=== PATIENT | female | born 1960 | race Caucasian/White ===

== ENCOUNTER 2020-04-23 11:05 | Outpatient (CLI) | payer MEDICARE, SELFPAY ==
--- NOTE | 2020-04-23 11:11 | MM_ITS ---
WS: [id number] BILATERAL SCREENING DIGITAL MAMMOGRAM WITH CAD HISTORY: SCREEN COMPARISON: 2017 and 08/20/2015 Bilateral CC and MLO views submitted. Computer aided detection analyzed. Breast composition: There are scattered areas of fibroglandular density. No suspicious masses, microc alcifications or architectural distortion. Benign lymph nodes in the lateral posterior RIGHT breast. MM/[id number] IMPRESSION: BI-RADS: 2-Benign FOLLOW UP: 1 Year Follow-up
== END 2020-04-23 11:06 | disposition home or self-care (01) ==
LOC: RADSHAW 11:11
PROVIDERS: PCP Family Medicine; Visit Provider Family Medicine
DX: Z12.31 Encounter for screening mammogram for malignant neoplasm of breast (principal)
CPT/HCPCS: 77067

== ENCOUNTER 2020-10-23 21:54 | Emergency (ER) | payer MEDICARE, SELFPAY ==
[2020-10-23 21:56] VITALS: BP 131/92; PULSE 88; RESP 20; TEMP 36.8; O2SAT 97; BMI 40.6
--- NOTE | 2020-10-23 22:04 | ECG_ITS ---
[facility] Test Date: 2020-10-23 Pat Name: Liana Mccord Department: Room: Gender: Female Edging Machine Feeder: : 1960 Requested By: Perry Falcon I Order Number: [id number] Reading MD: EMANUEL ARREDONDO Measurements Intervals [place] Rate: 84 P: 50 [place]: 153 QRS: 13 QRSD: 97 T: 50 QT: 390 QTc: 463 Interpretive Statements SINUS RHYTHM No previous ECG available for comparison Electronically Signed On 10-24-2020 19:59:31 MANAGER OF MAINTENANCE by EMANUEL ARREDONDO [id number]
--- NOTE | 2020-10-23 22:05 | ED_ITS ---
HPI - Chest Pain General: Chief Complaint: Chest Pain Stated Complaint: chest pain Source: patient and EMS Mode of arrival: EMS Limitations: no limitations History of Present Illness: HPI narrative: The patient is a 59-year-old female with a history of diabetes who presents to the emergency department with complaints of right-sided chest pain. She said she was looking for something this evening about 4 hours ago and got upset following which she developed a right-sided chest pain. She then called for an ambulance when the pain did not resolve. In the ambulance she received 3 24 mg of aspirin and 1 sublingual nitroglycerin. Her diastolic blood pressure dropped into the 20s after the nitroglycerin so it was not repeated. Her pain is currently much improved and says that it just feels sore MD complaint: chest pain Onset (ago): hour(s) (4) Timing of current episode: constant Prior episodes: No Onset: during exertion Pain location: right chest Pain radiation: none Severity: moderate Quality: sharp Relieving factors: nitroglycerin and rest Exacerbating factors: stress Associated symptoms: Reports nausea; Deny abdominal pain, diaphoresis, dyspnea, fever(s), leg edema, palpitations, se nse of impending doom, syncope or vomiting Treatment prior to arrival: aspirin and nitroglycerin Review of Systems General: Reports: 10 or more systems reviewed and unremarkable except in HPI and below Const: Denies: fever(s) or diaphoresis Eyes: Denies: change in vision or blurry vision ENMT: Denies: throat pain, enlarged tonsils, odynophagia, hoarseness, mouth pain or swelling of lips/tongue Card: Denies: palpitations or syncope Resp: Denies: dyspnea GI: Reports: nausea; Denies: abdominal pain or vomiting : Denies: flank pain, difficulty voiding, dysuria, urinary frequency, urinary urgency or urinary hesitancy Musc: Denies: neck pain, back pain or extremity swelling Skin/Breast: Denies: rash, pruritus or erythema Neuro: Denies: headache(s), numbness in extremities or weakness in extremities Endo: Denies: polyuria, polydipsia or tired all the time Physical Exam Const: COMMON NORMALS: no acute distress, average body habitus, patient oriented x3, no limitations, healthy appearing, alert and well nourished Neck/C-Spine: COMMON NORMALS: no meningeal signs and no JVD Chest: COMMONS NORMALS: normal inspection of the chest CHEST: Yes tenderness (right chest wall) Resp: COMMON NORMALS: normal respiratory effort, No retractions, No use of accessory muscles, clear to auscultation bilaterally and percussion normal AUSCULTATION: clear to auscultation bilaterally PERCUSSION: percussion normal Cardio: COMMON NORMALS: no JVD, regular rate, regular rhythm, S1 normal heart sound present, S2 normal heart sound present, No gallops present (Cardio), No clicks present (Cardio), No murmurs present (Cardio), No rub (Cardio) and Peripheral pulses 2+ throughout RATE: regular rate RHYTHM: regular rhythm HEART SOUNDS: S1 normal heart sound present and S2 normal heart sound present PERIPHERAL PULSES: Peripheral pulses 2+ throughout GI: COMMON NORMALS: Normal to inspection, nondistended, normoactive bowel sounds present, Soft to palpation, non-tender, No hepatosplenomegaly present, no masses and no bruits PALPATION: Yes Soft to palpation and Yes No hepatosplenomegaly present Extremity: COMMON NORMALS: normal to inspection, full ROM, capillary refill normal, no calf tenderness and no pedal edema Neuro: COMMON NORMALS: patient oriented x3 SENSORIUM/ORIENTATION: Yes alert MENINGEAL SIGNS: Yes no meningeal signs Skin: COMMON NORMALS: no rashes or lesions noted, no wounds, turgor normal, no jaundice, no petechiae and no mottling GENERAL SKIN EXAM: no rashes or lesions noted and turgor normal Course Reevaluation(s): Reevaluation #1: Discussed her lab and imaging findings with her. Negative for acute findings. Heart score is 3 which means she is low risk for an adverse cardiovascular event in the next 6 weeks. High-sensitivity troponin normal. We will therefore discharge her home to follow-up with her primary care provider. Patient and her voiced understanding and are in agreement with the plan. Time: 23:34 Vital Signs: Vital signs: Vital Signs Temperature 98.2 F 10/23/20 21:56 Pulse Rate 93 10/23/20 23:15 Respiratory Rate 26 H 10/23/20 23:15 Blood Pressure 113/84 10/23/20 23:15 Pulse Oximetry 96 10/23/20 23:15 MDM - Chest Pain MDM Narrative: Medical decision making narrative: 59-year-old female who was brought in for chest pain. Chest pain started when she became agitated and improved with rest. Heart score is 3 which means she has a 1.7% risk of a major adverse cardiovascular event in the next 6 weeks. Negative high-sensitivity troponin, negative D-dimer. Other labs and chest x-ray negative. We will therefore discharge her home with no new orders but to follow-up with her primary care provider. Medical Records: Attestation: I reviewed the patient's medical records. Lab Data: Attestation: I reviewed the patient's lab results. Labs: Lab Results 10/23/20 10/23/20 10/23/20 Range/Units 22:00 22:00 22:00 WBC 6.6 (4.0-10.0) 10^3/ uL RBC 4.85 (4.1-5.3) 10^6/u L Hgb 13.2 (11.5-15.3) g/dL Hct 41.7 (37.0-47.0) % MCV 86.0 (81-99) fL MCH 27.2 L (28.0-34.0) pg MCHC 31.7 (30.0-36.0) g/dL RDW 14.0 (12.1-15.1) % Plt Count 314 (130-400) 10^3/c mm MPV 11.0 H (7.4-10.4) fL Neut % (Auto) 62.2 % Lymph % (Auto) 25.8 % [place] % (Auto) 8.4 % Eos % (Auto) 2.7 % Baso % (Auto) 0.6 % Neut # (Auto) 4.12 (1.8-7.7) 10^3/u L Lymph # (Auto) 1.7 (0.8-4.8) 10^3/u L [place] # (Auto) 0.6 (0.2-0.9) 10^3/u L Eos # (Auto) 0.2 (0.0-0.8) 10^3/u L Baso # (Auto) 0.0 (0.0-0.1) 10^3/u L Nucleated RBC % (a uto) 0 % Nucleated RBCs # 0.0 /100WBC PT 12.00 L (12.1-14.9) SECO NDS INR 0.87 (0.8-1.2) D-Dimer 0.38 (0-0.59) ug/mIFE U Sodium 138 (136-145) mmol/L Potassium 4.3 (3.5-5.1) mmol/L Chloride 103 (98-107) mmol/L Carbon Dioxide 29 (22-29) mmol/L Anion Gap 10.3 (5-19) BUN 20 (6-20) mg/dL Creatinine 0.7 (0.5-0.9) mg/dL GFR Calculation 86.2 L (90-130) mL/min Glucose 115 (65-115) mg/dL Calculated Osmolal ity 290 (285-295) mOsm/k g Calcium 9.2 (8.5-10.5) mg/dL Total Bilirubin 0.2 (0.15-1.2) mg/dL AST 12 (0-32) U/L ALT 10 (0-33) U/L Alkaline Phosphata se 125 H (35-105) IU/L Troponin T Baselin e (0-10) ng/L NT-Pro-B Natriuret Pep 25 (0-125) pg/mL Total Protein 6.3 L (6.6-8.7) g/dL Albumin 4.1 (3.5-5.2) g/dL Globulin 2.2 (1.3-4.6) g/dL Lipase 30 (13-60) U/L 11/26/20 Range/Units 22:00 WBC (4.0-10.0) 10^3/ uL RBC (4.1-5.3) 10^6/u L Hgb (11.5-15.3) g/dL Hct (37.0-47.0) % MCV (81-99) fL MCH (28.0-34.0) pg MCHC (30.0-36.0) g/dL RDW (12.1-15.1) % Plt Count (130-400) 10^3/c mm MPV (7.4-10.4) fL Neut % (Auto) % Lymph % (Auto) % [place] % (Auto) % Eos % (Auto) % Baso % (Auto) % Neut # (Auto) (1.8-7.7) 10^3/u L Lymph # (Auto) (0.8-4.8) 10^3/u L [place] # (Auto) (0.2-0.9) 10^3/u L Eos # (Auto) (0.0-0.8) 10^3/u L Baso # (Auto) (0.0-0.1) 10^3/u L Nucleated RBC % (a uto) % Nucleated RBCs # /100WBC PT (12.1-14.9) SECO NDS INR (0.8-1.2) D-Dimer (0-0.59) ug/mIFE U Sodium (136-145) mmol/L Potassium (3.5-5.1) mmol/L Chloride (98-107) mmol/L Carbon Dioxide (22-29) mmol/L Anion Gap (5-19) BUN (6-20) mg/dL Creatinine (0.5-0.9) mg/dL GFR Calculation (90-130) mL/min Glucose (65-115) mg/dL Calculated Osmolal ity (285-295) mOsm/k g Calcium (8.5-10.5) mg/dL Total Bilirubin (0.15-1.2) mg/dL AST (0-32) U/L ALT (0-33) U/L Alkaline Phosphata se (35-105) IU/L Troponin T Baselin e 6 (0-10) ng/L NT-Pro-B Natriuret Pep (0-125) pg/mL Total Protein (6.6-8.7) g/dL Albumin (3.5-5.2) g/dL Globulin (1.3-4.6) g/dL Lipase (13-60) U/L Imaging Data^: CXR: Attestation: I personally reviewed and interpreted this imaging study as follows: My impression: No acute findings. No signs of pulmonary edema or consolidation. EKG Data^: EKG 1: Attestation: I personally reviewed and interpreted this EKG as follows: EKG interpretation date: 10/23/20 EKG interpretation time: 22:02 Prior EKG tracings: not available for review Interpretation: Normal sinus rhythm. Heart rate 84 bpm. Normal axis. No ST changes. Discharge Plan Discharge Patient Disposition: Home Clinical Impression: Chest pain, non-cardiac Condition: Stable Prescriptions: Continued gabapentin 300 mg Capsule 300 mg PO DIRECTED RF: 0 metformin 500 mg Tablet Extended Release 24 Hr 500 mg PO DAILY RF: 0 amitriptyline 100 mg Tablet 100 mg PO BEDTIME RF: 0 duloxetine 60 mg Capsule,Delayed Release(Dr/Ec) 60 mg PO DAILY RF: 0 solifenacin 10 mg Tablet 10 mg PO DAILY RF: 0 Discharge Orders: Discharge Order (Routine); Ordered 10/23/20 Ordered By: Perry Falcon Referrals: Jhon Abernathy MD [Primary Care Provider] - 1-3 days Discharge Diet: Low Salt and Low Cholesterol Discharge Activity: Resume usual activity Patient Instructions: Noncardiac Chest Pain (ED) Activity Restrictions/Additional Instructions: Return for any new or worsening symptoms. Follow-up with your primary care provider within 3 days. Continue your home medications. Coding Level of Care Code ED Facility Sales And Admin for Yazan Fwd Exam Comprehensive
[2020-10-23 22:11] LABS: Basophils % 0.6 %; Eosinophils # 0.2 10^3/uL (0.0-0.8); Eosinophils % 2.7 %; Hematocrit 41.7 % (37.0-47.0); Hemoglobin 13.2 g/dL (11.5-15.3); Lymphocytes # 1.7 10^3/uL (0.8-4.8); Lymphocytes % 25.8 %; Mean Corpuscular HGB Conc 31.7 g/dL (30.0-36.0); Mean Corpuscular Hemoglobin 27.2 pg (28.0-34.0); Monocytes # 0.6 10^3/uL (0.2-0.9); Monocytes % 8.4 %; Neutrophils # 4.12 10^3/uL (1.8-7.7); Neutrophils % 62.2 %; Nucleated Red Blood Cells % 0 %; Platelet Count 314 10^3/cmm (130-400); Red Blood Count 4.85 10^6/uL (4.1-5.3); White Blood Count 6.6 10^3/uL (4.0-10.0)
[2020-10-23 22:31] LABS: Troponin(5th) Baseline 6 ng/L (0-10)
[2020-10-23 22:34] LABS: INR 0.87 (0.8-1.2)
[2020-10-23 22:36] LABS: D Dimer 0.38 ug/mIFEU (0-0.59)
[2020-10-23 22:40] LABS: Alanine Aminotransferase 10 U/L (0-33); Albumin Level 4.1 g/dL (3.5-5.2); Alkaline Phosphatase 125 IU/L (35-105); Anion Gap 10.3 (5-19); Aspartate Amino Transferase 12 U/L (0-32); Blood Urea Nitrogen 20 mg/dL (6-20); Calcium 9.2 mg/dL (8.5-10.5); Carbon Dioxide 29 mmol/L (22-29); Chloride 103 mmol/L (98-107); Globulin 2.2 g/dL (1.3-4.6); Glomerular Filtration Rate 86.2 mL/min (90-130); Glucose 115 mg/dL (65-115); Lipase 30 U/L (13-60); NT Pro B Type Natriuretic Pept 25 pg/mL (0-125); Osmolality Calculated 290 mOsm/kg (285-295); Potassium 4.3 mmol/L (3.5-5.1); Sodium 138 mmol/L (136-145); Total Bilirubin 0.2 mg/dL (0.15-1.2); Total Protein 6.3 g/dL (6.6-8.7)
--- NOTE | 2020-10-23 22:59 | XR_ITS ---
WS: [id number] PORTABLE CHEST HISTORY: chest pain COMPARISON: None available. Lungs are clear and well expanded. No pleural effusion or pneumothorax. Cardiac size: Normal. Mediastinum/Aorta: Normal mediastinum. No osseous abnormality seen. XR/XR chest 1V portable [id number] IMPRESSION: Unremarkable portable chest.
[2020-10-23 23:08] VITALS: BP 125/93; PULSE 88; RESP 23; O2SAT 99
[2020-10-23 23:15] VITALS: BP 113/84; PULSE 93; RESP 26; O2SAT 96
[2020-10-24 00:25] VITALS: BP 115/80; PULSE 95; RESP 16; TEMP 36.8; O2SAT 98
== END 2020-10-24 00:25 | disposition home or self-care (01) ==
PROVIDERS: Emergency Provider Family Medicine; PCP Family Medicine
DX: R07.89 Other chest pain (principal); Z79.84 Long term (current) use of oral hypoglycemic drugs
CPT/HCPCS: 12345; 71045; 80053; 83690; 83880; 84484; 85025; 85378; 85610; 93005; 99282; 99283

== ENCOUNTER 2021-10-14 13:59 | Outpatient (CLI) | payer MEDICARE, SELFPAY ==
--- NOTE | 2021-10-14 14:11 | MM_ITS ---
WS: [id number] BILATERAL DIGITAL SCREENING MAMMOGRAPHY WITH CAD CLINICAL INFORMATION: SCREENING HISTORY: Screening mammogram. No current complaints. COMPARISON: April 23, 2020 TECHNIQUE: Bilateral CC and MLO views. FINDINGS: Scattered fibroglandular densities bilaterally. Stable punctate calcifications right breast. No suspi cious focal mass, asymmetry, calcifications, or architectural distortion. No evidence of malignancy. MM/[id number] IMPRESSION: BI-RADS: 2-Benign FOLLOW UP: 1 Year Follow-up Recommend return to annual screening mammography.
--- NOTE | 2021-10-14 14:53 | XR_ITS ---
WS: [id number] DEXA (DUAL ENERGY X-RAY ABSORPTIOMETRY) Bone mineral density was performed using a [employer] machine. HISTORY: POSTMENOPAUSAL COMPARISON: None available. Lumbar spine BMD (L1-L4): 1.245 g/cm2 T score: 0.5 Z score: 0.5 Total hip BMD: Left: 0.979 g/cm2. T score: -0.2 Z score: -0.2 Right: 1.130 g/cm2. T score: 1.0 Z score: 1.0 10 year probability of a major osteoporotic fracture is 7%. XR/XR DEXA axial skeleton* [id number] IMPRESSION: NORMAL BONE MINERAL DENSITY based upon the WHO classification for females.
== END 2021-10-14 14:00 | disposition home or self-care (01) ==
LOC: RADSHAW 14:07
PROVIDERS: PCP Family Medicine; Visit Provider Physician Assistant
DX: Z12.31 Encounter for screening mammogram for malignant neoplasm of breast (principal); Z78.0 Asymptomatic menopausal state
CPT/HCPCS: 77067; 77080

== ENCOUNTER 2022-06-11 12:56 | Emergency (ER) | payer MEDICARE, SELFPAY ==
[2022-06-11 13:02] VITALS: BP 135/91; PULSE 95; RESP 16; O2SAT 100
--- NOTE | 2022-06-11 13:36 | ED_ITS ---
HPI - Seizure General: Chief Complaint: Seizure Stated Complaint: SEIZURE LIKE ACTIVITY/NORMAL NOW Time Seen by Provider: 06/11/22 13:36 History of Present Illness: HPI Narrative: Ms. Mccord is a 61-year-old lady with history of TBI who presents to the emergen cy department due to shaking episode. She reports largely being at her baseline health and was upset when she could not find something earlier. She began to have some chest discomfort associated with shortness of breath feeling. She subsequently felt shaking all over that she could not control and vision went dark. She does not report loss of consciousness. Denies similar episodes in the past. Overall symptoms have improved except for mild substernal chest pain which remains. Does have a history of similar. No other specific changes in health, exacerbating, or alleviating factors identified. Onset (ago): hour(s) Description of Episode: other Witnessed: Yes - by Bystander Seizure History: Yes Place: Home Possible Precipitating Event: stress Review of Systems General: Reports: 10 or more systems reviewed and unremarkable except in HPI and below PFSH ED PFSH: Medical History (Updated 06/19/22 @ 00:01 by ) Diabetes History of traumatic brain injury Physical Exam Const: COMMON NORMALS: patient oriented x3 and alert GENERAL APPEARANCE: cooperative and well developed HENMT: COMMON NORMALS: normocephalic and atraumatic HEAD & SCALP: normocephalic and atraumatic THROAT: posterior oropharynx normal Eye: COMMON NORMALS: conjunctivae normal CONJUNCTIVA: Yes conjunctivae normal SCLERA: sclerae normal Neck/C-Spine: COMMON NORMALS: supple GENERAL: Yes trachea midline Resp: COMMON NORMALS: normal respiratory effort EFFORT & INSPECTION: Yes able to speak in complete sentences Cardio: COMMON NORMALS: regular rate and regular rhythm RATE: regular rate RHYTHM: regular rhythm GI: COMMON NORMALS: Soft to palpation PALPATION: Yes Soft to palpation and No Tenderness to palpation present (GI) PERCUSSION: normal to percussion Extremity: GENERAL: Yes normal exam except as noted and No edema Neuro: COMMON NORMALS: patient oriented x3, CN's II-XII intact bilaterally, moves all extremities, no focal motor deficits and no sensory deficits noted SENSORIUM/ORIENTATION: Yes alert and No Orientation impaired Psych: COMMON NORMALS: mental status grossly normal and Normal thought process present THOUGHT PROCESS: Normal thought process present Course ED course: - Patient was seen and evaluated by me at bedside - Patient placed on cardiac monitors, IV access obtained - Initial evaluation notable for exam as above. No focal neurodeficits. - Labs and xrays personally interpreted by me. EKG shows sinus rhythm, no STEMI. - Labs notable for significant hematologic or metabolic abnormality. Delta troponin is negative. - Imaging notable for No lobar consolidation or pneumothorax. No acute intracranial hemorrhage or mass on CT - Upon serial reexamination after treatment the patient was improved - Based on patient history, evaluation, and testing as interpreted the most likely cause of the patient's condition is seizure-like episode - The results of ED evaluation were discussed with the patient including prescriptions and/or symptomatic cares (if applicable) including appropriate and responsible use, followup plan, and return precautions. The patient verbalized understanding and felt safe for discharge. - Patient discharged in satisfactory condition. Note: Click bubbles or prepopulated almanza in note writing are used for assistance with data collection and billing and are inherently more limited than narrative and other text portions of this note. Please use narrative for additional clini danielle history and defer to narrative/free test for any case of contradictory information. If information appears in only free text or click bubble it should be considered present or absent as reported. Please contact note underwriter for clarifications of clinical information or contradictory information. MDM is a brief summary, contradictory or erroneous seeming information should be clarified and full note should be reviewed. Vital Signs: Vital signs: Vital Signs Pulse Rate 95 06/11/22 13:02 Respiratory Rate 16 06/11/22 13:02 Blood Pressure 135/91 06/11/22 13:02 Pulse Oximetry 100 06/11/22 13:02 MDM - Seizure MDM Narrative Medical decision making narrative: 61-year-old lady with history of TBI presenting due to shaking episode. Not a classic description for seizure and was precipitated by stress. No neurologic deficits appreciated on clinical exam. Satisfactory for outpatient management. Medical Records Attestation: I reviewed the patient's medical records. Lab Data Attestation: I reviewed the patient's lab results. Result diagrams: 06/11/22 12:00 06/11/22 12:00 Labs: Radiology Impressions Chest X-Ray 06/11/22 13:46 Impression: Negative chest. Head CT 06/11/22 13:46 IMPRESSION: 1. No acute intracranial hemorrhage or edema. 2. 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 3. Mild small vessel ischemic disease. 4. LEFT sphenoid sinus disease. Laboratory Results WBC 7.3 10^3/uL (4.0-10.0) 06/11/22 12:00 RBC 4.86 10^6/uL (4.1-5.3) 06/11/22 12:00 Hgb 13.1 g/dL (11.5-15.3) 06/11/22 12:00 Hct 40.3 % (37.0-47.0) 06/11/22 12:00 MCV 82.9 fl (81-99) 06/11/22 12:00 MCH 27.0 pg (28.0-34.0) L 06/11/22 12:00 MCHC 32.5 g/dL (30.0-36.0) 06/11/22 12:00 RDW 14.9 % (12.1-15.1) 06/11/22 12:00 Plt Count 367 10^3/cmm (130-400) 06/11/22 12:00 MPV 11.3 fL (7.4-10.4) H 06/11/22 12:00 Neut % (Auto) 66.9 % 06/11/22 12:00 Lymph % (Auto) 24.4 % 06/11/22 12:00 Harper % (Auto) 6.4 % 06/11/22 12:00 Eos % (Auto) 1.5 % 06/11/22 12:00 Baso % (Auto) 0.5 % 06/11/22 12:00 Neut # (Auto) 4.90 10^3/uL (1.8-7.7) 06/11/22 12:00 Lymph # (Auto) 1.8 10^3/uL (0.8-4.8) 06/11/22 12:00 Harper # (Auto) 0.5 10^3/uL (0.2-0.9) 06/11/22 12:00 Eos # (Auto) 0.1 10^3/uL (0.0-0.8) 06/11/22 12:00 Baso # (Auto) 0.0 10^3/uL (0.0-0.1) 06/11/22 12:00 Nucleated RBC % (auto) 0 % 06/11/22 12:00 Nucleated RBCs # 0.0 /100WBC 06/11/22 12:00 Sodium 138 mmol/L (136-145) 06/11/22 12:00 Potassium 3.8 mmol/L (3.5-5.1) 06/11/22 12:00 Chloride 99 mmol/L (98-107) 06/11/22 12:00 Carbon Dioxide 25 mmol/L (22-29) 06/11/22 12:00 Anion Gap 17.8 (5-19) 06/11/22 12:00 BUN 19 mg/dL (6-20) 06/11/22 12:00 Creatinine 0.7 mg/dL (0.5-0.9) 06/11/22 12:00 GFR Calculation 85.6 mL/min (90-130) L 06/11/22 12:00 Glucose 89 mg/dL (65-115) 06/11/22 12:00 Calculated Osmolality 288 mOsm/kg (285-295) 06/11/22 12:00 Calcium 9.5 mg/dL (8.5-10.5) 06/11/22 12:00 Total Bilirubin 0.4 mg/dL (0.15-1.2) 06/11/22 12:00 AST 15 U/L (0-32) 06/11/22 12:00 ALT 9 U/L (0-33) 06/11/22 12:00 Alkaline Phosphatase 117 IU/L (35-105) H 06/11/22 12:00 Troponin T Baseline 6 ng/L (0-10) 06/11/22 12:00 Troponin T 120 Minute 6.00 ng/L (0-10) 06/11/22 14:00 Delta Troponin T 0 ABS# (0-10) 06/11/22 14:00 Total Protein 7.3 g/dL (6.6-8.7) 06/11/22 12:00 Albumin 4.2 g/dL (3.5-5.2) 06/11/22 12:00 Globulin 3.1 g/dL (1.3-4.6) 06/11/22 12:00 TSH 2.75 uIU/mL (0.27-4.20) 06/11/22 12:00 Urine Color Yellow (Yellow) 06/11/22 15:13 Urine Appearance Hazy (CLEAR) A 06/11/22 15:13 Urine pH 6.5 (5-7) 06/11/22 15:13 Ur Specific [place]in 1.020 (1.005-1.030) 06/11/22 15:13 Urine Protein Neg (Negative) 06/11/22 15:13 Urine Glucose (UA) Norm (Normal) 06/11/22 15:13 Urine Ketones Negative (Negative) 06/11/22 15:13 Urine Blood Neg (Negative) 06/11/22 15:13 Urine Nitrate Negative (Negative) 06/11/22 15:13 Urine Bilirubin Neg (Negative) 06/11/22 15:13 Urine Urobilinogen Norm mg/dL (Negative) 06/11/22 15:13 Ur Leukocyte Esterase 2+ (Negative) H 06/11/22 15:13 Urine RBC None /hpf (0-2) 06/11/22 15:13 Urine WBC 0-4 /hpf (0-5) H 06/11/22 15:13 Ur Squamous Epith Cells 0-4 /hpf (0-5) H 06/11/22 15:13 Amorphous Sediment 1+ /hpf 06/11/22 15:13 Urine Bacteria Trace /hpf (NONE) 06/11/22 15:13 Discharge Plan Discharge Patient Disposition: Home Clinical Impression: Seizure-like activity Condition: Stable Prescriptions: No Action gabapentin 300 mg Capsule See Rx Instructions .ROUTE .COMPLEX 0RF Rx Instructions: 1 cap in AM, 1 cap in afternoon, 2 caps at bedtime metformin 500 mg Tablet Extended Release 24 Hr 500 mg PO QAM 0RF amitriptyline 100 mg Tablet 100 mg PO BEDTIME 0RF duloxetine 60 mg Capsule,Delayed Release(Dr/Ec) 60 mg PO QAM 0RF solifenacin 10 mg Tablet 10 mg PO QAM 0RF Tylenol Ex Str Rapid Release 500 mg Tablet 500 - 1,000 mg PO Q6H PRN (Reason: Pain) 0RF melatonin 5 mg Capsule 5 mg PO BEDTIME 0RF Discharge Orders: Discharge ED (Routine); Ordered 06/11/22 Ordered By: Keny Davenport Referrals: Jhon Abernathy MD [Primary Care Provider] - Discharge Diet: Usual diet Discharge Activity: Limit activity as instructed Patient Instructions: Seizures After Traumatic Brain Injury (ED) Activity Restrictions/Additional Instructions: Thank you for visiting the emergency department. You were seen and evaluated for seizure-like episode. The exact cause of your symptoms is somewhat unclear. Seizure is 1 possibility however there are other causes of abnormal events as well. I will message case management for outpatient EEG and follow-up with neurology. Please also follow-up with your primary care provider. Please return to the emergency department for recurrent episodes, any new neurologic symptoms, or anything else that you are concerned about a feel needs emergency department evaluation. Coding Level of Care Code ED Public Improvement Inspector for Yazan Fwtien Exam Comprehensive
--- NOTE | 2022-06-11 13:46 | XR_ITS ---
WS: [id number] Portable AP upright chest, 06/11/2022 Clinical Data: shaking episode, chest pain Comparison: Portable chest, 10/23/2020. Findings: No nodules, masses or effusions are seen. The heart is normal. The pulmonary vascularity is not increased. No pneumonia or pneumothorax is seen. The aortic arch and descending thoracic aorta s how tortuosity. XR/XR chest 1V portable [id number] Impression: Negative chest.
--- NOTE | 2022-06-11 13:46 | CT_ITS ---
WS: [id number] CT HEAD NONCONTRAST HISTORY: shaking episode TECHNIQUE: Contiguous axial imaging performed through the brain in 2.5 mm imaging. Bone and soft tiss ue windows. Sagittal and coronal reformats reviewed. All CT scans at [facility] use at least one of these dose optimization techniques: automated exposure control; mA and/or kV adjustment per pa tient size (includes targeted exams where dose is matched to clinical indication); or iterative recon struction. DLP: 1103.58 mGy.cm COMPARISON: 03/17/2017 No acute intracranial hemorrhage, midline shift or mass effect. Large area of encephalomalacia involving the LEFT frontal lobe. No midline shift or mass effect. Othe rwise mild small vessel ischemic disease. No acute interval change. Ventricles: Normal size with no hydrocephalus. No inferior displacement of the cerebellar tonsils. Paranasal sinuses: Moderate mucoperiosteal thickening in the LEFT sphenoid sinus. No air-fluid levels . Mastoid air cells: Well pneumatized. Calvarium and scalp: Skull is intact with no soft tissue edema or swelling. CT/CT head wo con* [id number] IMPRESSION: 1. No acute intracranial hemorrhage or edema. 2. 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 3. Mild small vessel ischemic disease. 4. LEFT sphenoid sinus disease.
--- NOTE | 2022-06-11 13:47 | ECG_ITS ---
[facility] Test Date: 2022-06-11 Pat Name: Liana Mccord Department: Room: Gender: Female Brusher Tender: : 1960 Requested By: Keny Davenport Order Number: [id number] Arnulfo MD: Kelly Saldivar M.D. Measurements Intervals [place] Rate: 72 P: 36 MA: 160 QRS: 11 QRSD: 99 T: 53 QT: 388 QTc: 427 Interpretive Statements SINUS RHYTHM MINIMAL ST DEPRESSION [0.025+ mV ST DEPRESSION] Compared to ECG 10/23/2020 22:02:20 ST (T wave) deviation now present Electronically Signed On 06-11-2022 17:13:51 CDT by Kelly Saldivar M.D. [email or web address]
[2022-06-11 13:56] LABS: Basophils % 0.5 %; Eosinophils # 0.1 10^3/uL (0.0-0.8); Eosinophils % 1.5 %; Hematocrit 40.3 % (37.0-47.0); Hemoglobin 13.1 g/dL (11.5-15.3); Lymphocytes # 1.8 10^3/uL (0.8-4.8); Lymphocytes % 24.4 %; Mean Corpuscular HGB Conc 32.5 g/dL (30.0-36.0); Mean Corpuscular Volume 82.9 fl (81-99); Mean Platelet Volume 11.3 fL (7.4-10.4); Monocytes # 0.5 10^3/uL (0.2-0.9); Monocytes % 6.4 %; Neutrophils % 66.9 %; Nucleated Red Blood Cells % 0 %; Platelet Count 367 10^3/cmm (130-400); Red Blood Count 4.86 10^6/uL (4.1-5.3); Red Cell Distribution Width 14.9 % (12.1-15.1); White Blood Count 7.3 10^3/uL (4.0-10.0)
[2022-06-11 14:08] LABS: Troponin(5th) Baseline 6 ng/L (0-10)
[2022-06-11 14:17] LABS: Alanine Aminotransferase 9 U/L (0-33); Albumin Level 4.2 g/dL (3.5-5.2); Alkaline Phosphatase 117 IU/L (35-105); Anion Gap 17.8 (5-19); Aspartate Amino Transferase 15 U/L (0-32); Blood Urea Nitrogen 19 mg/dL (6-20); Calcium 9.5 mg/dL (8.5-10.5); Carbon Dioxide 25 mmol/L (22-29); Chloride 99 mmol/L (98-107); Globulin 3.1 g/dL (1.3-4.6); Glomerular Filtration Rate 85.6 mL/min (90-130); Glucose 89 mg/dL (65-115); Osmolality Calculated 288 mOsm/kg (285-295); Potassium 3.8 mmol/L (3.5-5.1); Sodium 138 mmol/L (136-145); Thyroid Stimulating Hormone 2.75 uIU/mL (0.27-4.20); Total Bilirubin 0.4 mg/dL (0.15-1.2); Total Protein 7.3 g/dL (6.6-8.7)
[2022-06-11 14:54] LABS: Troponin 5 2HR Delta 0 ABS# (0-10)
[2022-06-11 15:19] LABS: Add Urine Microscopic? YES; Bilirubin Urine Neg (Negative); Blood Urine Neg (Negative); Glucose Urine UA Norm (Normal); Ketones Urine Negative (Negative); Leukocyte Esterase Urine 2+ (Negative); Nitrate Urine Negative (Negative); Protein Urine Neg (Negative); Urine Appearance Hazy (CLEAR); Urine Color Yellow (Yellow); Urobilinogen Urine Norm (Negative); pH Urine 6.5 (5-7)
[2022-06-11 15:25] LABS: Add Urine Culture? No; Amorphous Sediment Urine 1+ /hpf; Bacteria Urine TRACE /hpf; WBC Urine 0-4 /hpf (0-5)
[2022-06-11 17:34] LABS: Squamous Epithelial Cell Urine 0-4 /hpf (0-5)
--- NOTE | 2022-06-14 15:14 | DCPLANNER ---
Addendum entered by Agueda Jimenez 07/20/22 16:25: Patient had a follow up EEG scheduled for 07.05.22 - patient did attend appointment Patient had a follow up appointment scheduled with neurology - patient did attend appointment. Addendum entered by Agueda Jimenez 06/24/22 09:12: Patient has a follow up appointment scheduled for Thursday, July 07, 2022 at 2:[address] Daniel. Clinic will contact patient with appointment information. Addendum entered by Agueda Jimenez 06/22/22 13:41: Patient has an EEG scheduled for Tuesday, July 05, 2022 at 1:00. Clinic will call patient with appointment information. Original Note: manager project management had message to schedule an outpatient EEG and a neurology follow up appointment for patient. manager project management faxed signed order to the neurology clinic. manager project management also sent patients information to the front office staff at neurology. Patients information will be printed and reviewed. Clinic will call patient with appointment information.
== END 2022-06-11 16:38 | disposition home or self-care (01) ==
PROVIDERS: Emergency Provider Emergency Medicine; PCP Family Medicine
DX: R56.9 Unspecified convulsions (principal); Z79.84 Long term (current) use of oral hypoglycemic drugs; E11.9 Type 2 diabetes mellitus without complications; Z87.820 Personal history of traumatic brain injury
CPT/HCPCS: 70450; 71045; 80053; 81001; 84443; 84484; 85025; 93005; 99285

== ENCOUNTER → 2022-07-05 12:47 | Outpatient (BNVA) | payer MEDICARE, SELFPAY | PROVIDERS: PCP Family Medicine; Referring Provider Emergency Medicine; Visit Provider Specialist | DX: R56.9 Unspecified convulsions (principal) | CPT/HCPCS: 95816 ==

== ENCOUNTER → 2022-07-07 14:08 | Outpatient (BNVA) | payer MEDICARE, SELFPAY | PROVIDERS: PCP Family Medicine; Referring Provider Emergency Medicine; Visit Provider Nurse Practitioner | DX: R56.9 Unspecified convulsions (principal); G93.89 Other specified disorders of brain; R26.89 Other abnormalities of gait and mobility; S06.9X9S Unspecified intracranial injury with loss of consciousness of unspecified duration, sequela; Y93.52 Activity, horseback riding | CPT/HCPCS: 99204 ==

== ENCOUNTER 2022-08-16 15:22 | Outpatient (CLI) | payer MEDICARE, SELFPAY ==
--- NOTE | 2022-08-16 16:03 | MR_ITS ---
WS: [id number] MRI LUMBAR SPINE NONCONTRAST HISTORY: ATAXIA COMPARISON: Radiographs 07/01/2022 TECHNIQUE: Sagittal and axial multisequence imaging is submitted. Moderate increase in thoracic kyphosis. Mild curvature and increased lumbar lordosis. L4 anterolisthesis by 3.5 mm. No fracture or vertebral body edema. Disc spaces are well preserved with only mild desiccation. Conus terminates normally at L1-2 disc level. L1-L2: Very minimal disc bulging. No stenosis. L2-L3: Mild annular disc bulging with mild ligamentum flavum and facet arthritis. Very mild narrowing of the subarticular recesses but no contact on the nerve roots. L3-L4: Diffuse annular disc bulging with moderate ligamentum flavum and facet arthritis. Disc and fac et joint arthritis causing a mild central and bilateral subarticular recess stenosis. Mild encroachme nt upon the traversing L4 nerve roots. L4-L5: Diffuse annular disc bulging with a LEFT foraminal disc protrusion. Moderate ligamentum flavum and facet arthritis. The anterolisthesis is also contributing to stenosis. Moderate central and bila teral subarticular recess stenosis with encroachment upon the traversing L5 nerve roots. Mild foramin al stenosis. L5-S1: Mild disc bulging. No significant stenosis. MR/MR lumbar spine wo con* [id number] IMPRESSION: 1. Mild degenerative curvature lumbar spine. 2. L4 anterolisthesis by 3.5 mm. 3. Moderate central and bilateral subarticular recess stenosis at L4-5 with en croachment upon the traversing L5 nerve roots. Mild foraminal stenosis. 4. Mild central and bilateral subarticular recess stenosis at L3-4 with mild e ncroachment upon the traversing L4 nerve roots.
== END 2022-08-16 15:23 | disposition home or self-care (01) ==
PROVIDERS: PCP Family Medicine; Visit Provider Family Medicine
DX: R27.0 Ataxia, unspecified (principal); M48.061 Spinal stenosis, lumbar region without neurogenic claudication
CPT/HCPCS: 72148

== ENCOUNTER 2022-10-18 12:24 | Outpatient (CLI) | payer MEDICARE, SELFPAY ==
--- NOTE | 2022-10-18 12:57 | MM_ITS ---
WS: [id number] BILATERAL 3D TOMOSYNTHESIS DIGITAL SCREENING MAMMOGRAPHY WITH CAD CLINICAL INFORMATION: SCREENING HISTORY: Screening mammogram. No current complaints. COMPARISON: October 14, 2021 TECHNIQUE: Bilateral CC and MLO views. FINDINGS: Scattered fibroglandular densities bilaterally. A few incidental punctate calcifications RIGHT breast . No suspicious focal mass, asymmetry, calcifications, or architectural distortion. No evidence of ma lignancy. MM/[place] [id number] IMPRESSION: BI-RADS: 2-Benign FOLLOW UP: 1 Year Follow-up Recommend return to annual screening mammography.
== END 2022-10-18 12:25 | disposition home or self-care (01) ==
PROVIDERS: PCP Family Medicine; Visit Provider Physician Assistant
DX: Z12.31 Encounter for screening mammogram for malignant neoplasm of breast (principal)
CPT/HCPCS: 77063; 77067

== ENCOUNTER 2024-07-09 11:46 | Emergency (ER) | payer MEDICARE, SELFPAY ==
[2024-07-09 11:50] VITALS: BP 103/68; PULSE 90; RESP 16; TEMP 36.7; O2SAT 98; BMI 38.4
--- NOTE | 2024-07-09 12:23 | ED_ITS ---
HPI - Neuro Symptoms/Deficit 2 General: Chief Complaint: Neuro Symptoms/Deficit Stated Complaint: Stroke like symptoms Time Seen by Provider: 07/09/24 12:11 History of Present Illness: 63-year-old female presents to the [facility] ency room with complaint of right-sided head pain pain behind her ear radiating up into her forehead difficult time opening and closing her right eye. This been going on for several days. She has some drooping around the right eye. She has not had any other signs or symptoms. No difficulty with speech or swallowing. No recent head trauma. Associated symptoms: Deny chest pain Related Data Home Medications Medication Instructions Recorded Confirmed amitriptyline 100 mg tablet 100 mg PO BEDTIME 10/23/20 07/09/24 duloxetine 60 mg capsule,delayed 60 mg PO QAM 10/23/20 07/09/24 release gabapentin 300 mg capsule See Rx Instructions .Route .COMPLEX 10/23/20 07/09/24 metformin 500 mg tablet,extended 500 mg PO QAM 10/23/20 07/09/24 release 24 hr solifenacin 10 mg tablet 10 mg PO QAM 10/23/20 07/09/24 acetaminophen 500 mg tablet 500 - 1,000 mg PO Q6H PRN Pain 06/11/22 07/09/24 mecobalamin (vitamin B12) 1,000 1,000 mcg PO DAILY 07/07/22 07/09/24 mcg chewable tablet (B12 Active) melatonin 12 mg disintegrating 12 mg PO BEDTIME 07/09/24 07/09/24 tablet Previous Rx's Medication Instructions Recorded prednisone 50 mg tablet 50 mg PO DAILY 7 days #7 tabs 07/09/24 Allergies Allergy/AdvReac Type Severity Reaction Status Date / Time bee pollen Allergy Unknown Verified 07/09/24 12:07 control Allergy Unknown Uncoded 07/09/24 12:07 Review of Systems 2 Const: Denies: fever(s) or chills Card: Denies: chest pain Resp: Denies: dyspnea GI: Denies: abdominal pain : Denies: dysuria, urinary frequency or urinary urgency Musc: Denies: neck pain or back pain Skin/Breast: Denies: rash PFSH ED 2 PFSH: Medical History Seizure-like activity History of traumatic brain injury Diabetes Social History Smoking and tobacco/nicotine status: never used tobacco/nicotine Alcohol intake: never Substance/Drug Use: never NIH stroke score 2 NIHSS: Level Of Consciousness - 1a: 0 Level Of Consciousness Questions - 1b: Both Correct Level Of Consciousness Commands - 1c: Both Correct Visual [place] - 3: No Visual Loss Facial Palsy - 4: Minor Paralysis Motor Arm Right - 5: No Drift Motor Arm Left - 5: No Drift Motor Leg Right - 6: No Drift Motor Leg Left - 6: No Drift Limb Ataxia - 7: Absent Sensory - 8: Normal Best Language - 9: No Aphasia Dysarthia - 10: Normal Extinction And Inattention - 11: 0 Physical Exam 2 Const: COMMON NORMALS: no acute distress GENERAL APPEARANCE: cooperative and comfortable ORIENTATION/CONSCIOUSNESS: Yes awake, Yes oriented to person, Yes oriented to place and Yes oriented to time HENMT: COMMON NORMALS: normocephalic, atraumatic and hearing grossly normal bilaterally HEAD & SCALP: normocephalic and atraumatic Resp: COMMON NORMALS: normal respiratory effort, No retractions, No use of accessory muscles and clear to auscultation bilaterally AUSCULTATION: clear to auscultation bilaterally Cardio: COMMON NORMALS: regular rate, regular rhythm and No murmurs present (Cardio) RATE: regular rate RHYTHM: regular rhythm GI: COMMON NORMALS: Soft to palpation and No hepatosplenomegaly present A USCULTATION: Yes normoactive bowel sounds PALPATION: Yes Soft to palpation, No Tenderness to palpation present (GI), No Guarding due to palpation present (GI) and Yes No hepatosplenomegaly present Extremity: COMMON NORMALS: normal to inspection, capillary refill normal, no clubbing, cyanosis or edema, no calf tenderness and no pedal edema Neuro: SENSORIUM/ORIENTATION: Yes oriented to person, Yes oriented to place and Yes oriented to time Skin: COMMON NORMALS: no rashes or lesions noted GENERAL SKIN EXAM: no rashes or lesions noted Course 2 Vital Signs: Vital signs: Vital Signs Temperature 98.1 F 07/09/24 11:50 Pulse Rate 73 07/09/24 13:00 Respiratory Rate 16 07/09/24 11:50 Blood Pressure 99/61 07/09/24 13:00 Pulse Oximetry 99 07/09/24 13:00 Oxygen Delivery Me thod Room Air 07/09/24 13:00 MDM - Neuro Symptoms/Deficit Medical Decision Making CT does not show anything acute patient is several days and she has minimal neurologic findings those are consistent with a Schilling's palsy. Will start her on oral steroids have her follow-up with her primary care Medical Records I reviewed the patient's medical records. Lab Data I reviewed the patient's lab results. 07/09/24 13:05 07/09/24 13:[address] 07/09/24 12:24 IMPRESSION: 1. No evidence of intracranial hemorrhage or mass effect. 2. 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 3. No acute intracranial findings. Laboratory Results WBC 4.16 10^3/uL (3.29-11.43) 07/09/24 13:05 RBC 4.29 10^6/uL (3.85-5.65) 07/09/24 13:05 Hgb 12.10 g/dL (11.27-16.99) 07/09/24 13:05 Hct 37.5 % (36-47) 07/09/24 13:05 MCV 87.4 fl (85-98) 07/09/24 13:05 MCH 28.2 pg (27-33) 07/09/24 13:05 MCHC 32.3 g/dL (30-55) 07/09/24 13:05 RDW 14.3 % (12.1-15.1) 07/09/24 13:05 Plt Count 235 10^3/cmm (157-399) 07/09/24 13:05 MPV 10.0 fL (7.4-10.4) 07/09/24 13:05 Neut % (Auto) 55.8 % 07/09/24 13:05 Lymph % (Auto) 29.3 % 07/09/24 13:05 Pacific % (Auto) 10.6 % 07/09/24 13:05 Eos % (Auto) 3.1 % 07/09/24 13:05 Baso % (Auto) 0.7 % 07/09/24 13:05 Neut # (Auto) 2.32 10^3/uL (1.8-7.7) 07/09/24 13:05 Lymph # (Auto) 1.2 10^3/uL (0.8-4.8) 07/09/24 13:05 Pacific # (Auto) 0.4 10^3/uL (0.2-0.9) 07/09/24 13:05 Eos # (Auto) 0.1 10^3/uL (0.0-0.8) 07/09/24 13:05 Baso # (Auto) 0.0 10^3/uL (0.0-0.1) 07/09/24 13:05 Nucleated RBC % (auto) 0 % 07/09/24 13:05 Nucleated RBCs # 0.0 /100WBC 07/09/24 13:05 Sodium 139 mmol/L (136-145) 07/09/24 13:05 Potassium 4.2 mmol/L (3.5-5.1) 07/09/24 13:05 Chloride 105 mmol/L (98-107) 07/09/24 13:05 Carbon Dioxide 27 mmol/L (22-29) 07/09/24 13:05 Anion Gap 11.2 (5-19) 07/09/24 13:05 BUN 13 mg/dL (8-23) 07/09/24 13:05 Creatinine 0.7 mg/dL (0.5-0.9) 07/09/24 13:05 GFR Calculation 85.1 mL/min (90-130) L 07/09/24 13:05 Glucose 74 mg/dL (65-115) 07/09/24 13:05 Calculated Osmolality 287 mOsm/kg (285-295) 07/09/24 13:05 Calcium 8.4 mg/dL (8.5-10.5) L 07/09/24 13:05 Total Bilirubin 0.2 mg/dL (0.15-1.2) 07/09/24 13:05 AST 17 U/L (0-32) 07/09/24 13:05 ALT 11 U/L (0-33) 07/09/24 13:05 Alkaline Phosphatase 90 U/L (35-105) 07/09/24 13:05 Total Protein 6.1 g/dL (6.6-8.7) L 07/09/24 13:05 Albumin 3.4 g/dL (3.5-5.2) L 07/09/24 13:05 Globulin 2.7 g/dL (1.3-4.6) 07/09/24 13:05 All radiology interpretation(s) finalized by discharge Discharge Plan Discharge Patient Disposition: Home Clinical Impression: Schilling's palsy Condition: Stable Prescriptions: New prednisone 50 mg tablet 50 mg PO DAILY 7 Days Qty: 7 0RF No Action B12 Active 1,000 mcg tablet,chewable 1,000 mcg PO DAILY gabapentin 300 mg Capsule See Rx Instructions .ROUTE .COMPLEX Rx Instructions: Take 1 capsule by mouth in AM, 1 capsule in afternoon, and 2 capsules at bedtime. metformin 500 mg Tablet Extended Release 24 Hr 500 mg PO QAM amitriptyline 100 mg Tablet 100 mg PO BEDTIME duloxetine 60 mg Capsule,Delayed Release(Dr/Ec) 60 mg PO QAM solifenacin 10 mg Tablet 10 mg PO QAM acetaminophen [Tylenol Ex Str Rapid Release] 500 mg Tablet 500 - 1,000 mg PO Q6H PRN (Reason: Pain) melatonin 12 mg Tablet,Disintegrating 12 mg PO BEDTIME Discharge Orders: Discharge ED (Routine); Ordered 07/09/24 Ordered By: Markos Tavarez Referrals: Jhon Abernathy MD [Primary Care Provider] - Discharge Diet: Usual diet Discharge Activity: Increase activity as tolerated Patient Instructions: Schilling Palsy (ED), Opioid Safety, Pain Management Coding Level of Care Code ED Senior Specialist for Yazan Garcia
--- NOTE | 2024-07-09 12:24 | CT_ITS ---
WS: [id number] CT HEAD TECHNIQUE: Noncontrast CT of the head obtained from the skullbase to the vertex. CLINICAL INFORMATION: headache , difficulty opening R eye COMPARISON: CT head 06/11/2022 DLP: 1056.[address] scans at [facility] use at least one of these dose optimization techniques: automated e xposure control; mA and/or kV adjustment per patient size (includes targeted exams where dose is matc hed to clinical indication); or iterative reconstruction. FINDINGS: No evidence of intracranial hemorrhage or mass effect. Ventricular system and basal cisterns are lewis nt. Mild small vessel changes with mild parenchymal volume loss. No extra-axial fluid collections. No evidence of mass or mass effect. Vascular calcification. Unchanged chronic infarct in the LEFT infer ior frontal lobe. Unchanged slight chronic encephalomalacia in the LEFT middle cranial fossa. Paranasal sinuses and mastoid air cells are well aerated. Trace fluid in the sphenoid sinus..Normal v isualized soft tissues. CT/CT head wo con* [id number] IMPRESSION: 1. No evidence of intracranial hemorrhage or mass effect. 2. 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 3. No acute intracranial findings.
[2024-07-09 13:00] VITALS: BP 99/61; PULSE 73; O2SAT 99
[2024-07-09 13:12] LABS: Basophils % 0.7 %; Eosinophils # 0.1 10^3/uL (0.0-0.8); Eosinophils % 3.1 %; Hematocrit 37.5 % (36-47); Lymphocytes # 1.2 10^3/uL (0.8-4.8); Lymphocytes % 29.3 %; Mean Corpuscular HGB Conc 32.3 g/dL (30-55); Mean Corpuscular Hemoglobin 28.2 pg (27-33); Mean Corpuscular Volume 87.4 fl (85-98); Monocytes # 0.4 10^3/uL (0.2-0.9); Monocytes % 10.6 %; Neutrophils # 2.32 10^3/uL (1.8-7.7); Neutrophils % 55.8 %; Nucleated Red Blood Cells % 0 %; Platelet Count 235 10^3/cmm (157-399); Red Blood Count 4.29 10^6/uL (3.85-5.65); Red Cell Distribution Width 14.3 % (12.1-15.1); White Blood Count 4.16 10^3/uL (3.29-11.43)
[2024-07-09 13:38] LABS: Alanine Aminotransferase 11 U/L (0-33); Albumin Level 3.4 g/dL (3.5-5.2); Alkaline Phosphatase 90 U/L (35-105); Anion Gap 11.2 (5-19); Aspartate Amino Transferase 17 U/L (0-32); Blood Urea Nitrogen 13 mg/dL (8-23); Calcium 8.4 mg/dL (8.5-10.5); Carbon Dioxide 27 mmol/L (22-29); Chloride 105 mmol/L (98-107); Creatinine Clr Calc Pharmacy 90.8145; Globulin 2.7 g/dL (1.3-4.6); Glomerular Filtration Rate 85.1 mL/min (90-130); Glucose 74 mg/dL (65-115); Osmolality Calculated 287 mOsm/kg (285-295); Potassium 4.2 mmol/L (3.5-5.1); Sodium 139 mmol/L (136-145); Total Bilirubin 0.2 mg/dL (0.15-1.2); Total Protein 6.1 g/dL (6.6-8.7)
[2024-07-09 14:07] VITALS: BP 118/82; PULSE 70; O2SAT 97
== END 2024-07-09 14:10 | disposition home or self-care (01) ==
PROVIDERS: Emergency Provider Family Medicine; PCP Family Medicine
DX: G51.0 Bell's palsy (principal); E11.9 Type 2 diabetes mellitus without complications
CPT/HCPCS: 36415; 70450; 80053; 85025; 99284

== ENCOUNTER 2024-08-24 13:31 | Outpatient (CLI) | payer MEDICARE, SELFPAY ==
--- NOTE | 2024-08-24 13:39 | MM_ITS ---
WS: [id number] Bilateral screening 3D tomosynthesis digital mammogram, 08/24/2024 1:48 PM Clinical Data: SCREENING Comparison: 10/18/2022, 10/14/2021, 04/23/2020, 01/27/2018, 08/20/2015. Findings: No spiculated masses or clustered calcifications are seen. There are no secondary signs of carcinoma . MM/MM scr BI tomosynthesis [id number] Impression: Negative bilateral mammogram unchanged. Recommend annual screening mammograms. BIRADS: 1 - Negative. FOLLOW UP: 1 Year Follow-up DENSITY: There are scattered areas of fibroglandular density. The CAD dump grounds checker was used
--- NOTE | 2024-08-24 13:47 | XR_ITS ---
WS: [id number] DEXA (DUAL ENERGY X-RAY ABSORPTIOMETRY) Bone mineral density was performed using a [employer] machine. HISTORY: POSTMENOPAUSAL COMPARISON: 10/14/2021 Lumbar spine BMD (L1-L4): 1.309 g/cm2 T score: 1.1 Z score: 1.3 Total hip BMD: Left: 0.938 g/cm2. T score: -0.6 Z score: -0.4 Right: 1.064 g/cm2. T score: 0.4 Z score: 0.6 10 year probability of a major osteoporotic fracture is 7.3%. Compared to the prior study from 10/14/2021. Lumbar spine bone mineral density has increased by 5.1%. Bilateral hips bone mineral density has decreased by 5.0%. XR/XR DEXA axial skeleton* [id number] IMPRESSION: NORMAL BONE MINERAL DENSITY based upon the WHO classification for females. Significant increase in bone mineral density within the lumbar spine since the prior study. Significant decrease in bone mineral density within the hips since the prior st [facility].
== END 2024-08-24 13:32 | disposition home or self-care (01) ==
PROVIDERS: PCP Family Medicine; Visit Provider Family Medicine
DX: Z12.31 Encounter for screening mammogram for malignant neoplasm of breast (principal); Z13.820 Encounter for screening for osteoporosis; Z78.0 Asymptomatic menopausal state
CPT/HCPCS: 77063; 77067; 77080

== ENCOUNTER → 2025-02-20 12:40 | Outpatient (BNVA) | payer MEDICARE, SELFPAY | PROVIDERS: PCP Family Medicine; Visit Provider Nurse Practitioner | DX: M17.12 Unilateral primary osteoarthritis, left knee (principal); M21.162 Varus deformity, not elsewhere classified, left knee | CPT/HCPCS: 73560; 73565; 99204 ==

== ENCOUNTER 2025-04-08 09:46 | Outpatient (CLI) | payer MEDICARE, SELFPAY ==
[2025-04-08 10:59] LABS: Bilirubin Urine Negative (Negative); Blood Urine Negative (Negative); Glucose Urine UA Negative (Normal); Ketones Urine Negative (Negative); Leukocyte Esterase Urine Trace (Negative); Nitrate Urine Negative (Negative); Protein Urine Negative (Negative); Specific Gravity, Urine 1.019 (1.005-1.030); Urine Appearance Clear (CLEAR); Urine Color Yellow (Yellow)
[2025-04-08 11:01] LABS: Add Urine Microscopic? YES; Bacteria Urine Trace /hpf; RBC Urine 0-2 /hpf (0-2); Squamous Epithelial Cell Urine 0-5 /hpf (0-5); WBC Urine 0-5 /hpf (0-5)
[2025-04-08 11:02] LABS: Basophils # 0.1 10^3/uL (0.0-0.1); Basophils % 0.8 %; Eosinophils # 0.1 10^3/uL (0.0-0.8); Hematocrit 43.4 % (36-47); Lymphocytes # 1.8 10^3/uL (0.8-4.8); Lymphocytes % 26.8 %; Mean Corpuscular HGB Conc 31.8 g/dL (30-55); Mean Corpuscular Hemoglobin 27.4 pg (27-33); Mean Corpuscular Volume 86.1 fl (85-98); Mean Platelet Volume 10.1 fL (7.4-10.4); Monocytes # 0.4 10^3/uL (0.2-0.9); Monocytes % 6.6 %; Neutrophils # 4.18 10^3/uL (1.8-7.7); Neutrophils % 63.6 %; Nucleated Red Blood Cells % 0 %; Platelet Count 291 10^3/cmm (157-399); Red Blood Count 5.04 10^6/uL (3.85-5.65); White Blood Count 6.56 10^3/uL (3.29-11.43)
[2025-04-08 11:11] LABS: Alanine Aminotransferase 10 U/L (0-33); Albumin Level 3.9 g/dL (3.5-5.2); Alkaline Phosphatase 91 U/L (35-105); Aspartate Amino Transferase 15 U/L (0-32); Blood Urea Nitrogen 15 mg/dL (8-23); Calcium 9.6 mg/dL (8.5-10.5); Carbon Dioxide 29 mmol/L (22-29); Chloride 104 mmol/L (98-107); Glomerular Filtration Rate 101.3 mL/min (90-130); Glucose 103 mg/dL (65-115); Osmolality Calculated 295 mOsm/kg (285-295); Sodium 142 mmol/L (136-145); Total Bilirubin 0.4 mg/dL (0.15-1.2); Total Protein 6.9 g/dL (6.6-8.7)
[2025-04-08 11:29] LABS: Add Urine Culture? No
--- NOTE | 2025-04-08 15:15 | CT_ITS ---
WS: [id number] CT LEFT knee, noncontrast HISTORY: left knee pain TECHNIQUE: Protocol for GEM total knee replacement has been obtained. This includes axial imaging through the LEFT hip, LEFT knee and LEFT ankle. DLP: 930.77 mGy.cm COMPARISON: 02/20/2025 LEFT hip: No significant narrowing of the hip joint. No destructive bone lesions. LEFT knee: Severe narrowing of the medial compartment. Marginal osteophytes in all compartments. No fractures. Subchondral cystic changes along the articular surfaces. Small suprapatellar joint effusion. Moderate-sized Hernandez's cyst. Calcified intra-articular body noted anterior to the lateral femoral condyle. LEFT ankle: Negative. CT/CT knee LT [facility] [id number] IMPRESSION: CT imaging provided for [facility] robotic total knee replacement.
== END 2025-04-08 09:47 | disposition home or self-care (01) ==
PROVIDERS: PCP Family Medicine; Visit Provider Nurse Practitioner
DX: M17.12 Unilateral primary osteoarthritis, left knee (principal); M25.762 Osteophyte, left knee; R93.6 Abnormal findings on diagnostic imaging of limbs; M25.462 Effusion, left knee; M71.22 Synovial cyst of popliteal space [Baker], left knee
CPT/HCPCS: 36415; 73700; 80053; 81001; 85025

== ENCOUNTER → 2025-04-15 11:04 | Outpatient (BNVA) | payer MEDICARE, SELFPAY | PROVIDERS: PCP Family Medicine; Visit Provider Family Medicine | DX: Z01.818 Encounter for other preprocedural examination (principal); E11.9 Type 2 diabetes mellitus without complications; R93.1 Abnormal findings on diagnostic imaging of heart and coronary circulation | CPT/HCPCS: 83036; 93005 ==

== ENCOUNTER 2025-04-23 10:29 | Observation (INO) | payer MEDICARE, SELFPAY ==
[2025-04-23] VITALS (33 sets, daily range): BP systolic 58–147; BP diastolic 39–96; PULSE 60–91; RESP 15–20; TEMP 36.1–36.9; O2SAT 91–100; BMI 39.1
[2025-04-23 06:43] LABS: Glucose Point of Care 117 mg/dL (70-110)
[2025-04-23] MEDS: CELEcoxib 200 mg Capsule 400 MG PO (06:49)
[2025-04-23] MEDS: gabapentin 300 mg Capsule PO ×3 (06:49→20:22)
[2025-04-23] MEDS: acetaminophen 1,000 MG/100 ML PIGGYBACK 400 MG IV ×3 (06:50→23:59)
[2025-04-23] MEDS: sodium chloride 0.9% 1,000 ML 30 ML IV (06:51)
--- NOTE | 2025-04-23 06:59 | ANES.PREANE2 ---
Pre-Anesthetic Assessment Height/Weight: Height 1.57 m Weight 97.069 kg Temp Pulse Resp BP Pulse Ox O2 Del Method 96.9 F L 91 18 140/93 99 Room Air 04/23/25 06:38 04/23/25 06:38 04/23/25 06:38 04/23/25 06:38 04/23/25 06:38 04/23/25 06:38 Operation Date: 04/23/25 07:50 Proposed Procedures p LEFT Stephen Robot Total Knee Arthroplasty(Left) - Jennifer Caba MD Familial anesthetic complications: None Was Beta Paulette taken within 24 hours: N/A Was Clonidine taken within 24 hours: N/A Last intake: Intake Last Liquid Date 04/22/25 Last Liquid Time 21:00 Last Solid Date 04/22/25 Last Solid Time 20:00 Social No alcohol and No tobacco Exam alert, oriented x 3, clear to auscultation bilaterally and regular rate & rhythm Airway Mallampati: Class II Pulmonary Sleep Apnea Metabolic Diabetes Mellitus and Hyperlipidemia Neuropsych TBI from horse accident Anesthetic Plan ASA status: 3 Anesthesia: General Risk of > 500 ml blood loss (7ml/kg in children): No Medications/Allergies Home Medications ?Medication ?Instructions ?Recorded ?Confirmed ?Last Taken ?Type amitriptyline 100 mg tablet 100 mg PO BEDTIME 10/23/20 04/18/25 04/18/25 History duloxetine 60 mg capsule,delayed 60 mg PO QAM 10/23/20 04/18/25 04/18/25 History release gabapentin 300 mg capsule 300 - 600 mg PO TID 10/23/20 04/18/25 04/18/25 History metformin 500 mg tablet,extended 500 mg PO QAM 10/23/20 04/18/25 04/18/25 History release 24 hr solifenacin 10 mg tablet 10 mg PO QAM 10/23/20 04/18/25 04/18/25 History acetaminophen 500 mg tablet 500 - 1,000 mg PO Q6H PRN Pain 06/11/22 04/18/25 04/18/25 History mecobalamin (vitamin B12) 1,000 1,000 mcg PO DAILY 07/07/22 04/18/25 04/18/25 History mcg chewable tablet (B12 Active) melatonin 12 mg disintegrating 12 mg PO BEDTIME 07/09/24 04/18/25 04/18/25 History tablet rosuvastatin 20 mg tablet 20 mg PO QDAY 04/15/25 04/18/25 04/18/25 History semaglutide 0.25 mg or 0.5 mg (2 0.5 mg SUBCUT Q7D 04/15/25 04/18/25 04/03/25 History mg/3 mL) subcutaneous pen injector (Ozempic) Allergies Allergy/AdvReac Type Severity Reaction Status Date / Time control Allergy ALGY-Hives Uncoded 04/23/25 06:23 Current Medications Generic Name Dose Route Start Last Admin Trade Name Freq PRN Reason Stop Dose Admin Sodium Chloride 1,000 mls @ 30 mls/hr 04/23/25 06:15 04/23/25 06:51 Sodium Chloride 0.9% IV 04/24/25 06:14 30 mls/hr .Q24H LASHAY Administration PFSH Anesthesia Medical History (Updated 02/26/25 @ 12:27 by AMALIA Pickett) Varus deformity of knee Primary osteoarthritis of left knee Seizure-like activity History of traumatic brain injury Diabetes Social History Smoking and tobacco/nicotine status: never used tobacco/nicotine Alcohol intake: never Substance/Drug Use: never
--- NOTE | 2025-04-23 07:09 | W.PM.OPSUD ---
Surgery/Procedure H&P Update DATE OF PROCEDURE: April 23, 2025 DATE H&P PERFORMED: 04/15/25 H&P UPDATE INFORMATION: I have reviewed H&P completed within last 30 days, I have examined patient prior to procedure, No changes to prior documentation, Changes to prior documentation as noted here and Risks and benefits of the procedure reviewed PREOP DIAGNOSIS: Primary osteoarthritis left knee PLANNED PROCEDURE: Operation Date: 04/23/25 07:50 Proposed Procedures p LEFT Stephen Robot Total Knee Arthroplasty(Left) - Jennifer Caba MD Related Problem List Diagnoses (1) Primary osteoarthritis of left knee: (2) Varus deformity of knee: Qualifiers: Laterality: left Qualified Code(s): M21.162 - Varus deformity, not elsewhere classified, left knee
[2025-04-23] MEDS: ceFAZolin 2,000 mg SDV 2000 MG IVP ×2 (08:00→17:02)
[2025-04-23] MEDS: tranexamic acid 1,000 mg/10mL SDV 1000 MG IV (08:06)
[2025-04-23] MEDS: BUPivacaine 0.5% INJ 30 mL 20 ML INJECTION (08:45)
[2025-04-23] MEDS: ceFAZolin 1,000 mg SDV 2000 MG IRRIGATION (08:45)
[2025-04-23] MEDS: sodium chloride 0.9% 50 mL Bag XX (08:46)
[2025-04-23] MEDS: BUPivacaine liposome 13.3 mg/mL SDV 20 mL 266 MG INFILTRATI (08:47)
[2025-04-23] MEDS: VANCOMYCIN ADD-Vantage 1,000 MG VIAL 1000 MG XX (08:47)
--- NOTE | 2025-04-23 11:06 | XRR_ITS ---
XR/XR knee RT 1-2V [id number] PROCEDURE INFORMATION: Exam: XR Left Knee Exam date and time: 04/23/2025 11:05 AM Age: 64 years old Clinical indication: Device placement; Joint replacement hardware; Prior surgery; Surgery date: Post-operative (0-2 days); Surgery type: Left knee; Additional info: Status post left total knee arthroplasty TECHNIQUE: Imaging protocol: Radiologic exam of the left knee. Views: 1 or 2 views. COMPARISON: [place] [id number] 07/01/2022 2:13 PM FINDINGS/IMPRESSION: Bones/joints: There is good anatomic alignment of the left knee status post left knee arthroplasty. Suspected prominent nutrient foramina at the left fibular neck on the lateral view. Soft tissues: There are routine postsurgical changes noted in the soft tissues surrounding the left knee.
--- NOTE | 2025-04-23 11:10 | P.OP_ITS ---
Operative Report Date of procedure: April 23, 2025 Pre-op diagnosis: Primary osteoarthritis left knee with varus deformity Post-op diagnosis: Primary osteoarthritis left knee with varus deformity Post-op findings: Severe degenerative osteoarthritic change with lax lateral collateral ligament and tight medial collateral ligament, large osteophytes, and complete denudement of cartilage particularly medially. Procedure done: Left total knee arthroplasty with Stephen guidance Implants: The [employer] total knee system with a size 4 triathlon beaded cruciate retaining femur left, a triathlon titanium tibial component size 3 beaded, a triathlon X3 tibial bearing CS insert size 3 X 10 mm and a beaded triathlon titanium asymmetric patella size 32 x 10 mm Specimens removed/disposition: Bone, disposed of Pathology: None sent Surgeon: Jennifer Caba MD Logging Equipment Mechanic: Kimberly Guzmán, nurse practitioner, whose services were required for positioning, retraction, completion of the surgery, and closure. Anesthesia: Spinal (With MAC, ASA 3) Estimated blood loss (mL): 350 Tourniquet time (min): 0 (Not utilized) IV fluids (mL): 1,400 Urine output (mL): 800 Complications: None Findings: As noted above and postoperative findings Condition: stable Disposition: PACU (Then admit under observation status to floor for postoperative rehabilitation and pain management) Brief History: This 64-year-old woman presented with chronic complaints of worsening left knee pain and osteoarthritis. Prior treatments include anti-inflammatory medications, knee bracing, formal and home physical therapy, and activity modifications. The patient was having significant limitations in her activities of daily living. After discussion in the office, she wished to proceed with total knee arthroplasty. Risks and complications were discussed with her. Consents were signed preoperatively in the office. Questions were answered. The patient was given further opportunity for review of the surgery and to ask questions on the morning of surgery. Procedure: The patient was brought to the operating theater, and after undergoing spinal anesthesia with MAC, ASA 3, the left lower extremity was prepped with Dura-Prep and draped in usual fashion following placement of a tourniquet high on the leg. The leg was then draped free.? Tourniquet was not elevated during the case.? A surgical pause was performed, and at the time of the surgical pause, we confirmed the site and side of surgery. Additionally, we confirmed the appropriate and timely administration of preoperative antibiotics, Ancef 2 g and Transexemic acid 1 g. An additional gram will be given postoperatively on the floor. The availability of equipment was confirmed, and the patient's identity was verbalized as well. Following the surgical pause, an incision was made centering over the patella continuing proximally and distally as necessary to allow access to the knee joint. Dissection continued through skin and soft tissues using a scalpel. Hemostasis was obtained using electrocautery. The skin incision was followed by a median parapatellar arthrotomy. The leg was extended and the patella was able to be displaced laterally.? Appropriate arrays and markers were placed in appropriate position for use of the Stephen.? Preoperative planning had been accomplished and was discussed in detail with the [facility] labor representative.? Intraoperative mapping of the femur and tibia was accomplished after the arrays were placed.? Internal markers were also placed.? Once we had accomplished the Stephen mapping, we began the appropriate resections for placement of the prosthesis.? The plan was for a posterior cruciate retaining cementless left total knee arthroplasty. Once appropriate mapping had been accomplished, retraction was established using manual retraction by surgical technicians and also the [facility] leg positioner and retractors.? The knee was evaluated.? There was significant osteoarthritic change without significant varus or valgus deformity.? Appropriate bone resection was accomplished using the Stephen.? The femur was sized to a size 4.? Following femoral cuts, attention was directed to the tibia.? Osteophytes were removed prior to this portion of the procedure.? We had performed a medial release at the beginning of the procedure to allow for placement of the array.? Proximal tibia was evaluated, and it was felt that appropriate size for the tibia was a size 3.? Tray was noted to fit nicely with good coverage.? Rim fit was accomplished with the size 3. A trial reduction was accomplished after osteophytes had been removed as well as the medial and lateral menisci.? We had removed the anterior cruciate ligament remnants at the beginning of the case and preserved the posterior cruciate ligament.? Trial reduction was accomplished with a size 4 femoral cruciate retaining component and a size 3 TriTanium tibial tray.? Trial was accomplished with a 10 mm insert, and with the [address], alignment was felt to be appropriate as well.? Trial components were removed after the femur had been drilled.? Prior to removal of the tibial tray which had been pinned in position with appropriate rotation as determined by the Stephen plan, we broached the tibia.? Subsequently, the 4 drill holes were made for the prosthetic component.? All trial components were removed, and the wound was irrigated.? Plans were made for insertion of the prosthetic components.? Prior to this, the patella was manually prepared.? After resection of the articular surface with the jigging system, it was measured and measured a 32 mm patella.? We resected approximately 7 mm of patella.? Patellar height was restored with the patellar component. Once again, the wound was irrigated.? The Tritanium tibia was impacted into position.? The beaded femur was then impacted into position in a cementless fashion. The CS tibial insert was placed prior to placement of the femoral component. The patella was pressed into position with a patellar clamp.? Exparel was injected about the components deep and superficially.? The knee was then copiously irrigated with betadine and saline and suctioned dry. Copious irrigation was accomplished following this. Attention was then directed to closure. Closure was accomplished with 0 Vicryl in the fascial tissues.? The suture line of 0 Vicryl was supplemented with strata fix, #1, with a running stitch from proximal to distal and a second running stitch from distal to proximal.? This was followed by Surgiflo and vancomycin powder.? Following this, a 2-0 Monocryl strata fix was used in the subcutaneous tissues, and the skin was closed with 3-0 Strata fix.? Care was taken to assure an excellent subcutaneous as well as skin closure.? A sterile dressing was then placed consisting of Dermabond Prineo, OpSite, ABD, sterile soft roll, and an David wrap including over the foot. The patient was returned the Recovery Room in a satisfactory conditi on. X-rays were obtained and reviewed there.? The patient will be discharged to the floor for postoperative rehabilitation and pain management. Related Problem List Diagnoses (1) Primary osteoarthritis of left knee: (2) Varus deformity of knee:
[2025-04-23] MEDS: fentaNYL 50 mcg/mL INJ 2mL IVP (11:19)
--- NOTE | 2025-04-23 12:35 | ANE.PACU2 ---
Inpatient post-anesthesia follow up: Airway intact: Yes Vital signs: Temperature 98.0 F Pulse Rate 68 Respiratory Rate 18 Blood Pressure 124/85 Pulse Oximetry 95 Oxygen Delivery Me thod Nasal Cannula Oxygen Flow Rate 1 Fraction of Inspir ed Oxygen Hydration adequate: Yes Nausea and vomiting: No Pain level: 1 Mental status: Baseline
[2025-04-23] MEDS: chlorhexidine gluconate 0.12% Btl 473 mL 30 ML MUCOUS MEM ×3 (13:31→20:23)
[2025-04-23] MEDS: sodium chloride 0.9% 1,000 ML 100 ML IV (13:31)
[2025-04-23] MEDS: oxyCODONE 5 mg IR Tab/Cap PO ×2 (14:18→19:24)
[2025-04-23] MEDS: tranexamic acid 1,000 MG/100 ML PREMIX 600 MG IV (15:03)
[2025-04-23] MEDS: calcium carbonate 500 mg Chew Tablet 1000 MG PO (17:02)
[2025-04-23] MEDS: sennosides-docusate Tablet 2 TAB PO (17:02)
[2025-04-23] MEDS: iron polysaccharide complex 150 mg Capsule PO (17:02)
[2025-04-23] MEDS: ATORVASTATIN 10 MG TABLET 20 MG PO (20:21)
[2025-04-23] MEDS: amitriptyline 25 mg Tablet 100 MG PO (20:22)
[2025-04-24] MEDS: ceFAZolin 2,000 mg SDV 2000 MG IVP ×2 (01:30→08:57)
[2025-04-24 03:58] VITALS: BP 112/80; PULSE 76; RESP 17; TEMP 36.7; O2SAT 94
[2025-04-24 05:27] LABS: Basophils % 0.5 %; Eosinophils % 0.6 %; Hematocrit 33.7 % (36-47); Lymphocytes # 1.2 10^3/uL (0.8-4.8); Lymphocytes % 18.1 %; Mean Corpuscular HGB Conc 30.9 g/dL (30-55); Mean Corpuscular Hemoglobin 27.8 pg (27-33); Mean Corpuscular Volume 90.1 fl (85-98); Mean Platelet Volume 10.5 fL (7.4-10.4); Monocytes # 0.6 10^3/uL (0.2-0.9); Monocytes % 8.9 %; Neutrophils # 4.76 10^3/uL (1.8-7.7); Neutrophils % 71.6 %; Nucleated Red Blood Cells % 0 %; Platelet Count 224 10^3/cmm (157-399); Red Blood Count 3.74 10^6/uL (3.85-5.65); Red Cell Distribution Width 14.5 % (12.1-15.1); White Blood Count 6.64 10^3/uL (3.29-11.43)
[2025-04-24] MEDS: metformin XR 500 MG Tablet PO (05:35)
[2025-04-24] MEDS: duloxetine 60 mg Capsule PO (05:35)
[2025-04-24 05:36] VITALS: RESP 18; O2SAT 97
[2025-04-24] MEDS: oxyCODONE 5 mg IR Tab/Cap PO ×2 (05:36→13:17)
[2025-04-24 05:50] LABS: Anion Gap 10.1 (5-19); Blood Urea Nitrogen 11 mg/dL (8-23); Calcium 8.3 mg/dL (8.5-10.5); Carbon Dioxide 27 mmol/L (22-29); Chloride 107 mmol/L (98-107); Creatinine Clr Calc Pharmacy 105.7233; Glomerular Filtration Rate 101.3 mL/min (90-130); Glucose 120 mg/dL (65-115); Osmolality Calculated 291 mOsm/kg (285-295); Potassium 4.1 mmol/L (3.5-5.1); Sodium 140 mmol/L (136-145)
[2025-04-24 07:53] VITALS: BP 109/70; PULSE 98; RESP 16; TEMP 36.4; O2SAT 94
[2025-04-24] MEDS: acetaminophen 1,000 MG/100 ML PIGGYBACK 400 MG IV (08:55)
[2025-04-24] MEDS: aspirin 325 mg EC Tablet PO (08:56)
[2025-04-24] MEDS: calcium carbonate 500 mg Chew Tablet 1000 MG PO (08:56)
[2025-04-24] MEDS: multivitamin therapeutic Tablet 1 TAB PO (08:56)
[2025-04-24] MEDS: cholecalciferol (vitamin D3) 1,000 unit Tablet 1000 UNIT PO (08:56)
[2025-04-24] MEDS: chlorhexidine gluconate 0.12% Btl 473 mL 30 ML MUCOUS MEM ×2 (08:57→12:45)
[2025-04-24] MEDS: iron polysaccharide complex 150 mg Capsule PO (08:57)
[2025-04-24] MEDS: gabapentin 300 mg Capsule PO (08:57)
[2025-04-24] MEDS: sennosides-docusate Tablet 2 TAB PO (08:57)
[2025-04-24] MEDS: mupirocin oint 22 gm 1 APPLIC NASAL (09:07)
[2025-04-24] MEDS: sodium chloride 0.9% 1,000 ML 100 ML IV ×2 (09:10)
--- NOTE | 2025-04-24 10:13 | PC.CHAP ---
Pastoral Care Encounter/Spiritual Assessment Type of Contact [] Declined brush washer visit [] Patient/Family/Request visit [] Outpatient visit [] Follow-up visit [] Physician referral [] Code/Alert [x] Routine visit [] Staff referral [] Actively dying [] Patient sleeping [] Family support [] [] Out of room [] Palliative care [] [] Receiving care in room [] Pre-surgical visit [] Trauma [] Long length of stay [] ICU visit [] Other: Relational/Emotional Strength [x] Patient feels connected with others/family/visitors/staff [] Distress [] Loneliness/isolation [] Abandonment Spirituality of Patient [x] Person of Susannah [] Attends Mu-Ism of their Susannah [x] Believes in Prayer [] Reads Bible or Voodoo materials [] There are Spiritual issues to be addressed Chief Console Operator Interventions [x] Prayer [x] Active listening [] Non-anxious presence [x] Spiritual/emotional support [] Crisis/trauma care [] Spiritual counseling [] Bereavement support [] Provided bereavement packet [] Provided Bible/devotional materials [] Provided toy/stuffed animal, coloring book to patient or family member [] Provided Communion [] Anointing/[place] [] Salvation [x] Completed spiritual assessment [] Other: Impact on Illness or Injury [] Angry [] Fearful [] Anxious [] Often cries [] Exhaustion [] Unable to work [] Unable to attend confucianism [] Unable to walk/stand [] Unable to read [] Unable to drive [] Unable to eat/drink [] Unable to sleep [] Unable to be with family [] Patient intubated [] Other: Summary Time spent with patient 5 min
[2025-04-24 11:53] VITALS: BP 114/75; PULSE 96; RESP 16; TEMP 36.6; O2SAT 94
--- NOTE | 2025-04-24 12:39 | P.DS_ITS ---
Discharge Providers Date of Admission: 04/23/25 10:29 Date of Discharge: April 24, 2025 Attending Provider at Admission: Jennifer Caba MD Attending Provider at Discharge: Jennifer Caba MD Primary Care Provider: Jhon Abernathy MD Diagnoses at Discharge Discharge Diagnosis (1) S/P total knee arthroplasty: Status: Acute Qualifiers: Laterality: left Qualified Code(s): Z96.652 - Presence of left artificial knee joint Permanent problem details: Date of procedure: April 23, 2025 Pre-op diagnosis: Primary osteoarthritis left knee with varus deformity. Procedure done: Left total knee arthroplasty with Stephen guidance. Implants: The [place] total knee system with a size 4 triathlon beaded cruciate retaining femur left, a triathlon titanium tibial component size 3 beaded, a triathlon X3 tibial bearing CS insert size 3 X 10 mm and a beaded triathlon titanium asymmetric patella size 32 x 10 mm. Surgeon: Jennifer Caba MD (2) Primary osteoarthritis of left knee: Status: Chronic (3) Varus deformity of knee: Status: Chronic Qualifiers: Laterality: left Qualified Code(s): M21.162 - Varus deformity, not elsewhere classified, left knee Reason for Visit Reason for Visit: M17.12 Brief History: This 64-year-old woman presented with chronic complaints of worsening left knee pain and osteoarthritis. Prior treatments include anti-inflammatory medications, knee bracing, formal and home physical therapy, and activity modifications. The patient was having significant limitations in her activities of daily living. After discussion in the office, she wished to proceed with total knee arthroplasty. Risks and complications were discussed with her. Consents were signed preoperatively in the office. Questions were answered. The patient was given further opportunity for review of the surgery and to ask questions on the morning of surgery. Patient was taken for successful left total knee arthroplasty with Stephen guidance on April 23, 2025. Hospital Course Hospital Course Liana is a 64 year old, female patient, who is postoperative day 1 status post left total knee arthroplasty with Stephen guidance. She has worked with physical therapy successfully and is ambulating with the assistance of a walker. She is also worked with CPM for passive motion. Postoperative pain is well-controlled with oral medications. Her vital signs are stable and she is found to be safe for discharge. At this time, we will plan to discharge the patient home with halfway and therapy services. She will follow-up in our clinic 2 weeks postoperatively. Physical Exam Const: COMMON NORMALS: no acute distress, average body habitus, patient oriented x3, no limitations, alert and well nourished GENERAL APPEARANCE: cooperative; not anxious and not combative ORIENTATION/CONSCIOUSNESS: Yes awake, Yes oriented to person, Yes oriented to place and Yes oriented to time HENMT: COMMON NORMALS: normocephalic and atraumatic HEAD & SCALP: normocephalic and atraumatic Resp: COMMON NORMALS: normal respiratory effort Extremity: LEFT LOWER EXTREMITY: Yes knee joint (Bulky overwrap removed.) Left knee: Yes inspection (Postoperative dressing clean and dry. Mild swelling.), Yes palpation (Mild TTP to distal quad), Yes ROM (Not assessed due to recent postoperative state.) and Yes neurovascular exam (Sensation intact to light touch. Rapid cap refill.) OTHER: Calf soft and nontender. Neuro: COMMON NORMALS: patient oriented x3 SENSORIUM/ORIENTATION: Yes alert, Yes oriented to person, Yes oriented to place and Yes oriented to time Psych: ATTITUDE: Yes engaged Skin: COMMON NORMALS: no rashes or lesions noted, turgor normal and no jaundice GENERAL SKIN EXAM: no rashes or lesions noted and turgor normal Urinary Catheter Management: Bee: Cath Placed During This Visit: yes Reason for Continuing Indwelling Catheter: Required Immobilization for Trauma or Surgery or Anesthesia Urinary Catheter Date of Insertion: 04/23/25 Urinary Catheter Time of Insertion: 08:08 Discharge Data Studies Completed and Pending Completed Studies During Hospitalization Category Date Time Status XR knee RT 1-2V [id number] Urgent Exams 04/23/25 11:06 Completed Pending at discharge Category Date Time Status Complete Blood Count w/Auto AM LABS Lab 04/25/25 04:00 Ordered Complete Blood Count w/Auto AM LABS Lab 04/26/25 04:00 Ordered Radiology Impressions Knee X-Ray 04/23/25 11:06 PROCEDURE INFORMATION: Exam: XR Left Knee Exam date and time: 04/23/2025 11:05 AM Age: 64 years old Clinical indication: Device placement; Joint replacement hardware; Prior surgery; Surgery date: Post-operative (0-2 days); Surgery type: Left knee; Additional info: Status post left total knee arthroplasty TECHNIQUE: Imaging protocol: Radiologic exam of the left knee. Views: 1 or 2 views. COMPARISON: [place] [id number] 07/01/2022 2:13 PM FINDINGS/IMPRESSION: Bones/joints: There is good anatomic alignment of the left knee status post left knee arthroplasty. Suspected prominent nutrient foramina at the left fibular neck on the lateral view. Soft tissues: There are routine postsurgical changes noted in the soft tissues surrounding the left knee. Laboratory Results WBC 6.64 10^3/uL (3.29-11.43) 04/24/25 05:17 RBC 3.74 10^6/uL (3.85-5.65) L 04/24/25 05:17 Hgb 10.40 g/dL (11.27-16.99) L 04/24/25 05:17 Hct 33.7 % (36-47) L 04/24/25 05:17 MCV 90.1 fl (85-98) 04/24/25 05:17 MCH 27.8 pg (27-33) 04/24/25 05:17 MCHC 30.9 g/dL (30-55) 04/24/25 05:17 RDW 14.5 % (12.1-15.1) 04/24/25 05:17 Plt Count 224 10^3/cmm (157-399) 04/24/25 05:17 MPV 10.5 fL (7.4-10.4) H 04/24/25 05:17 Neut % (Auto) 71.6 % 04/24/25 05:17 Lymph % (Auto) 18.1 % 04/24/25 05:17 [place] % (Auto) 8.9 % 04/24/25 05:17 Eos % (Auto) 0.6 % 04/24/25 05:17 Baso % (Auto) 0.5 % 04/24/25 05:17 Neut # (Auto) 4.76 10^3/uL (1.8-7.7) 04/24/25 05:17 Lymph # (Auto) 1.2 10^3/uL (0.8-4.8) 04/24/25 05:17 [place] # (Auto) 0.6 10^3/uL (0.2-0.9) 04/24/25 05:17 Eos # (Auto) 0.0 10^3/uL (0.0-0.8) 04/24/25 05:17 Baso # (Auto) 0.0 10^3/uL (0.0-0.1) 04/24/25 05:17 Nucleated RBC % (auto) 0 % 04/24/25 05:17 Nucleated RBCs # 0.0 /100WBC 04/24/25 05:17 Sodium 140 mmol/L (136-145) 04/24/25 05:17 Potassium 4.1 mmol/L (3.5-5.1) 04/24/25 05:17 Chloride 107 mmol/L (98-107) 04/24/25 05:17 Carbon Dioxide 27 mmol/L (22-29) 04/24/25 05:17 Anion Gap 10.1 (5-19) 04/24/25 05:17 BUN 11 mg/dL (8-23) 04/24/25 05:17 Creatinine 0.6 mg/dL (0.5-0.9) 04/24/25 05:17 GFR Calculation 101.3 mL/min (90-130) 04/24/25 05:17 Glucose 120 mg/dL (65-115) H 04/24/25 05:17 POC Glucose 117 mg/dL (70-110) H 04/23/25 06:40 Calculated Osmolality 291 mOsm/kg (285-295) 04/24/25 05:17 Calcium 8.3 mg/dL (8.5-10.5) L 04/24/25 05:17 Vitals Last Vital Signs Temp 97.9 F 04/24/25 11:53 Pulse 96 04/24/25 11:53 Resp 16 04/24/25 11:53 BP 114/75 04/24/25 11:53 Pulse Ox 94 04/24/25 11:53 O2 Del Method Room Air 04/24/25 11:53 O2 Flow Rate 1 04/23/25 14:44 Discharge Plan Discharge Patient Disposition: Home Health Service Condition: Stable Prescriptions: New aspirin 325 mg Tablet,Delayed Release (Dr/Ec) 325 mg PO DAILY 30 Days Qty: 30 0RF oxycodone 5 mg Tablet 5 mg PO Q4H PRN (Reason: Moderate To Severe Pain) 7 Days Qty: 30 0RF celecoxib [Celebrex] 200 mg capsule 200 mg PO DAILY Qty: 30 0RF Continued B12 Active 1,000 mcg tablet,chewable 1,000 mcg PO DAILY rosuvastatin 20 mg tablet 20 mg PO QDAY Ozempic 0.25 mg or 0.5 mg (2 mg/3 mL) pen injector 0.5 mg SUBCUT Q7D gabapentin 300 mg Capsule 300 - 600 mg PO TID Rx Instructions: Take 1 capsule by mouth in AM, 1 capsule in afternoon, and 2 capsules at bedtime. metformin 500 mg Tablet Extended Release 24 Hr 500 mg PO QAM amitriptyline 100 mg Tablet 100 mg PO BEDTIME duloxetine 60 mg Capsule,Delayed Release(Dr/Ec) 60 mg PO QAM solifenacin 10 mg Tablet 10 mg PO QAM acetaminophen 500 mg Tablet 500 - 1,000 mg PO Q6H PRN (Reason: Pain) melatonin 12 mg Tablet,Disintegrating 12 mg PO BEDTIME Discharge Orders: Discharge Order (Routine); Ordered 04/24/25 Ordered By: Kimberly Guzmán Referrals: [facility] [Outside] Jennifer Caba MD [Physician, Orthopedics] - 05/06/25 2:45 pm Discharge Diet: Advance as tolerated and Usual diet Discharge Activity: Increase activity as tolerated, Limit activity as instructed, Use walker/crutches as instructed and As per PT/OT instructions Patient Instructions: Aspirin (By mouth), Oxycodone, Rapid Release (By mouth), Celecoxib (By mouth), Acute Wound Care (DC), Total Knee Replacement (GEN), Opioid Safety, Post Anesthesia Care Activity Restrictions/Additional Instructions: You may shower, but maintain the dressing in place on your leg. If it begins to leak, you may remove it. Do not submerge your leg in water. Ice and elevate your left knee. You may weight-bear as tolerated. Physical therapy to instruct in ambulation, gait training, and range of motion. 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
[2025-04-24] MEDS: acetaminophen 500 mg Tablet 1000 MG PO (12:44)
[2025-04-24 13:17] VITALS: RESP 18; O2SAT 98
[2025-04-24 13:25] VITALS: BP 114/75; PULSE 96; RESP 16; TEMP 36.6; O2SAT 94
== END 2025-04-24 13:25 | disposition home health service (06) ==
LOC: MEDSURG 10:29
PROVIDERS: Admitting Provider Specialist; PCP Family Medicine; Visit Provider Specialist
PROC: 8E0Y0CZ Robotic Assisted Procedure of Lower Extremity, Open Approach (ICD-10-PCS; CPT 27447; principal; 2025-04-23 07:50)
DX: M17.12 Unilateral primary osteoarthritis, left knee (principal); M21.162 Varus deformity, not elsewhere classified, left knee; Z79.84 Long term (current) use of oral hypoglycemic drugs; M25.762 Osteophyte, left knee; M94.8X6 Other specified disorders of cartilage, lower leg; E11.9 Type 2 diabetes mellitus without complications; E78.5 Hyperlipidemia, unspecified; Z87.820 Personal history of traumatic brain injury; R56.9 Unspecified convulsions; G47.33 Obstructive sleep apnea (adult) (pediatric)
CPT/HCPCS: 27447; 20985; 36415; 36416; 51702; 73560; 80048; 82962; 85025; 97116; 97161; 97165; 97530; A4216; C1776; G0378; J0131; J0666; J0690; J2250; J2371; J2405; J2704; J3010; J3370; J3490; J7030; J9999

== ENCOUNTER → 2025-05-13 13:35 | Outpatient (BNVA) | payer MEDICARE, SELFPAY | PROVIDERS: PCP Family Medicine; Visit Provider Specialist | DX: Z98.890 Other specified postprocedural states (principal); Z96.652 Presence of left artificial knee joint | CPT/HCPCS: 73560; 73565; 99024 ==

== ENCOUNTER → 2025-08-12 12:56 | Outpatient (BNVA) | payer MEDICARE, SELFPAY | PROVIDERS: PCP Family Medicine; Visit Provider Specialist | DX: Z98.890 Other specified postprocedural states (principal); Z96.652 Presence of left artificial knee joint | CPT/HCPCS: 73560; 73565; 99213 ==